=== PATIENT | male | born 1945 | race Caucasian/White ===

== ENCOUNTER 2017-04-03 06:02 | Inpatient (IN) | payer MEDICARE ==
[~2017-04-03] VITALS: Ht 177.8 cm; Wt 85.2 kg
[~2017-04-03 06:02] MED LIST: AMLO10TA2 PO; ASPI325T4 PO; FLUO40CA9 PO; FLUT16SP NAS; HYDR25TA6 PO; HYDROMORPHONE PO; LISI-170; LISI-170 PO; LISI30TA4 PO; LORA-439 PO; LOVA10TA PO; MELO-190 PO; NIAC500C8 PO; NIAC500T10 PO; OXYC-229; OXYC10TA6 PO; PANT40TA3 PO; PREG100C PO; PREG25CA PO; SIMV20TA3 PO; TIZA4CAP PO
[2017-04-03] MEDS ORDERED: BUPIVACAINE/PF-EPI 0.5% 1:200K ONE (06:49)
[2017-04-03] MEDS ORDERED: THROMBIN 5,000 UNIT VIAL TP ONE (06:50)
[2017-04-03] MEDS ORDERED: BACITRACIN 50,000 UNIT ONE (06:50)
[2017-04-03 07:19] VITALS: BP 137/76
[2017-04-03] MEDS ORDERED: LACTATED RINGERS 1,000 ML IV SCH (07:23)
[2017-04-03] MEDS ORDERED: FENTANYL PF 100 MCG/2ML ONE (08:36)
[2017-04-03] MEDS ORDERED: SUFentanil 50 MCG/ML, 1ML ONE (08:36)
[2017-04-03] MEDS ORDERED: ROCURONIUM 10 MG/ML ONE (08:48)
[2017-04-03] MEDS ORDERED: CEFAZOLIN 1,000 MG ONE (08:48)
[2017-04-03] MEDS ORDERED: ONDANSETRON 2MG/ML, 2ML ONE (08:48)
[2017-04-03] MEDS ORDERED: METOCLOPRAMIDE 5 MG/ML, 2ML ONE (08:48)
[2017-04-03] MEDS ORDERED: PROPOFOL 10 MG/ML, 20ML ONE (08:48)
[2017-04-03] MEDS ORDERED: GLYCOPYRROLATE 0.2MG/1ML ONE (08:48)
[2017-04-03] MEDS ORDERED: DEXAMETHASONE 4 MG/ML, 1ML ONE (08:48)
[2017-04-03] MEDS ORDERED: SUCCINYLCHOLINE 20 MG/ML, 10ML ONE (08:48)
[2017-04-03] MEDS ORDERED: OXYcodone 5 MG/5 ML ORAL.SOL UDC PO PRN (09:30)
[2017-04-03] MEDS ORDERED: hydrALAzine 20 MG/ML, 1ML IV PRN (09:30)
[2017-04-03] MEDS ORDERED: ONDANSETRON 2MG/ML, 2ML IVPush PRN ×2 (09:30→12:30)
[2017-04-03] MEDS ORDERED: LABETALOL 5MG/ML, 20ML IV PRN (09:30)
[2017-04-03] MEDS ORDERED: HYDROmorphone 1 MG/ML, 1ML IV PRN (09:30)
[2017-04-03] MEDS ORDERED: FENTANYL PF 100 MCG/2ML IV PRN (09:30)
[2017-04-03] MEDS ORDERED: HYDROmorphone PCA 30 MG/30 ML ONE (12:25)
[2017-04-03] MEDS ORDERED: BISACODYL 10 MG SUPP PR PRN (12:30)
[2017-04-03] MEDS ORDERED: HYDROmorphone PCA 30 MG/30 ML IV PRN (12:30)
[2017-04-03] MEDS ORDERED: PROMETHAZINE 25 MG/ML, 1ML IM PRN (12:30)
[2017-04-03] MEDS ORDERED: DIAZEPAM 5 MG TABLET PO PRN (12:30)
[2017-04-03] MEDS ORDERED: MAGNESIUM HYDROXIDE 8%, 30ML UDC PO PRN (12:30)
[2017-04-03] MEDS ORDERED: ACETAMINOPHEN 325 MG TABLET PO PRN (12:30)
[2017-04-03] MEDS ORDERED: LABETALOL 5MG/ML, 20ML IVPush PRN (12:30)
[2017-04-03] MEDS ORDERED: PHARMACY MAY ADJ FOR RENAL FX MC PRN (12:30)
[2017-04-03] MEDS ORDERED: MEPERIDINE/PF 100 MG/ML IM PRN (12:30)
[2017-04-03] MEDS: NS + 20MEQ KCL 1,000 ML IV SCH ×2 (15:20→22:30)
[2017-04-03] MEDS: CEFAZOLIN PMX 1GM/50ML 50 ML IVPB SCH (16:50)
[2017-04-03] MEDS: TIZANIDINE 4MG TABLET PO PRN (20:28)
[2017-04-03] MEDS: SODIUM CHLORIDE FLUSH 10ML SYR IVF SCH (20:28)
[2017-04-03] MEDS ORDERED: LOVASTATIN 40 MG TABLET PO SCH (21:00)
[2017-04-03] MEDS ORDERED: AMLODIPINE 5 MG TABLET PO SCH (21:00)
[2017-04-03 23:21] VITALS: BP 107/63
[2017-04-04] MEDS: CEFAZOLIN PMX 1GM/50ML 50 ML IVPB SCH (01:00)
[2017-04-04 03:35] VITALS: BP 136/72
[2017-04-04] MEDS ORDERED: HYDROmorphone 2MG TABLET ONE ×3 (06:22→14:44)
[2017-04-04] MEDS: HYDROmorphone 4MG TABLET PO PRN ×3 (06:23→14:46)
[2017-04-04] MEDS: TIZANIDINE 4MG TABLET PO PRN (06:23)
[2017-04-04 06:43] VITALS: BP 132/67
[2017-04-04] MEDS: NS + 20MEQ KCL 1,000 ML IV SCH (08:30)
[2017-04-04] MEDS ORDERED: SENNA/DOCUSATE TABLET PO SCH (09:00)
[2017-04-04] MEDS ORDERED: FLUOXETINE 20 MG CAPSULE PO SCH (09:00)
[2017-04-04] MEDS: SODIUM CHLORIDE FLUSH 10ML SYR IVF SCH (09:00)
[2017-04-04] MEDS ORDERED: HYDROCHLOROTHIAZIDE 25 MG TABLET PO SCH (09:00)
[2017-04-04] MEDS ORDERED: PREGABALIN 100 MG CAPSULE PO SCH (09:00)
[2017-04-04] MEDS ORDERED: LORATADINE 10 MG TABLET PO SCH (09:00)
[2017-04-04 12:59] VITALS: BP 132/69
[2017-04-04 14:54] VITALS: BP 153/80
[2017-04-04] MEDS ORDERED: HYDR4TAB48 PO (15:14)
[2017-04-04] MEDS ORDERED: TIZA4TAB9 PO (15:15)
== END 2017-04-04 15:30 | disposition home or self-care (01) | DRG 472 ==
LOC: ORIP 06:02 → 4NOR 13:18 → DCLOUNGE 04-04 14:55
PROVIDERS: ADMIT Neurological Surgery; ATTEND Neurological Surgery
PROC: 0RB30ZZ Excision of Cervical Vertebral Disc, Open Approach (ICD-10-PCS; 2017-04-03)
PROC: 4A11X4G Monitoring of Peripheral Nervous Electrical Activity, Intraoperative, External Approach (ICD-10-PCS; 2017-04-03)
PROC: 0RG20A0 Fusion of 2 or more Cervical Vertebral Joints with Interbody Fusion Device, Anterior Approach, Anterior Column, Open Approach (ICD-10-PCS; principal; 2017-04-03 08:30)
DX: M48.02 Spinal stenosis, cervical region (principal); J96.10 Chronic respiratory failure, unspecified whether with hypoxia or hypercapnia; M50.30 Other cervical disc degeneration, unspecified cervical region; M19.90 Unspecified osteoarthritis, unspecified site; G89.29 Other chronic pain; I10 Essential (primary) hypertension; Z96.651 Presence of right artificial knee joint; Z82.61 Family history of arthritis; Z85.46 Personal history of malignant neoplasm of prostate; Z86.73 Personal history of transient ischemic attack (TIA), and cerebral infarction without residual deficits; Z82.49 Family history of ischemic heart disease and other diseases of the circulatory system; Z80.9 Family history of malignant neoplasm, unspecified
CPT/HCPCS: 72040; 95938; 95941; C1713; J0690; J1100; J1170; J2405; J2704; J3010; J3480; J3490; J0330; J2765; J7120

== ENCOUNTER 2017-04-07 14:32 | Observation (INO) | payer MEDICARE ==
[~2017-04-07] VITALS: Ht 172.7 cm; Wt 82.2 kg
[~2017-04-07 14:32] MED LIST changes: +HYDR4TAB48 PO; +TIZA4TAB9 PO
[2017-04-07 15:46] LABS: ASPARTATE AMINO TRANSFERASE 56 U/L (15-37); BLOOD UREA NITROGEN 18 mg/dL (7-18)
[2017-04-07 15:47] LABS: ACETAMINOPHEN < 2 mcg/mL (10-30)
[2017-04-07 15:51] LABS: IS PT STATUS REG ER OR PRE ER? YES
[2017-04-07] MEDS ORDERED: TIZANIDINE 4MG TABLET PO PRN (19:00)
[2017-04-07 19:28] VITALS: BP 129/70
[2017-04-07 20:00] VITALS: BP 133/74
[2017-04-07] MEDS ORDERED: ACETAMINOPHEN 325 MG TABLET PO PRN (20:00)
[2017-04-07] MEDS ORDERED: TEMAZEPAM 15 MG CAPSULE PO PRN (20:00)
[2017-04-07] MEDS ORDERED: DOCUSATE 100 MG CAPSULE PO PRN (20:00)
[2017-04-07] MEDS ORDERED: ONDANSETRON 2MG/ML, 2ML IVPush PRN (20:00)
[2017-04-07] MEDS: OXYcodone/APAP 5/325MG TABLET PO PRN (20:28)
[2017-04-07] MEDS ORDERED: AMLODIPINE 5 MG TABLET PO SCH (21:00)
[2017-04-07] MEDS ORDERED: LOVASTATIN 40 MG TABLET PO SCH (21:00)
[2017-04-08] MEDS: OXYcodone/APAP 5/325MG TABLET PO PRN ×2 (00:20→04:45)
[2017-04-08 01:56] VITALS: BP 146/79
[2017-04-08 04:35] LABS: BLOOD UREA NITROGEN 13 mg/dL (7-18)
[2017-04-08 04:38] LABS: ASPARTATE AMINO TRANSFERASE 49 U/L (15-37)
[2017-04-08 06:45] VITALS: BP 147/79
[2017-04-08] MEDS ORDERED: POTASSIUM CHLORIDE 20 MEQ TAB.ER.PRT PO ONE (07:30)
[2017-04-08] MEDS ORDERED: PREGABALIN 100 MG CAPSULE PO SCH (09:00)
[2017-04-08] MEDS ORDERED: FLUOXETINE 20 MG CAPSULE PO SCH (09:00)
[2017-04-08] MEDS ORDERED: SENNA/DOCUSATE TABLET PO SCH (09:00)
== END 2017-04-08 10:45 | disposition home or self-care (01) ==
LOC: ED 15:31 → INTOOBSV 17:51 → EDIP 17:51 → 3NW 19:05
PROVIDERS: ADMIT Internal Medicine; ATTEND Internal Medicine
DX: R41.82 Altered mental status, unspecified (principal); E78.5 Hyperlipidemia, unspecified; E87.1 Hypo-osmolality and hyponatremia; F11.20 Opioid dependence, uncomplicated; J32.9 Chronic sinusitis, unspecified; D64.9 Anemia, unspecified; I11.9 Hypertensive heart disease without heart failure; F32.9 Major depressive disorder, single episode, unspecified; Z79.891 Long term (current) use of opiate analgesic; Z98.1 Arthrodesis status
CPT/HCPCS: 36415; 70450; 71010; 80053; 80307; 80329; 81003; 83605; 84484; 85025; 87040; 93005; 99285; G0378; G0480

== ENCOUNTER 2017-04-09 08:51 | Emergency (ER) | payer MEDICARE ==
[~2017-04-09] VITALS: Ht 177.8 cm; Wt 81.3 kg
[2017-04-09 09:55] VITALS: BP 120/68
[2017-04-09 10:33] LABS: BLOOD UREA NITROGEN 12 mg/dL (7-18)
[2017-04-09 10:40] LABS: IS PT STATUS REG ER OR PRE ER? YES
== END 2017-04-09 11:35 | disposition home or self-care (01) ==
LOC: ED 09:38
DX: J45.909 Unspecified asthma, uncomplicated (principal); J20.9 Acute bronchitis, unspecified; R09.02 Hypoxemia; I10 Essential (primary) hypertension; Z86.73 Personal history of transient ischemic attack (TIA), and cerebral infarction without residual deficits
CPT/HCPCS: 36415; 71010; 80048; 82040; 84484; 85025; 93005; 99285

== ENCOUNTER → 2018-03-12 | Outpatient (CLI) | payer MEDICARE ==
[~2018-03-12] MED LIST changes: +ASPI325T17 PO; -ASPI325T4 PO; -MELO-190 PO; +MELO7.5T31 PO; -OXYC-229; +OXYC-307
== END | disposition home or self-care (01) ==
LOC: EDSTATUS 14:30 → CFH 14:34
PROVIDERS: ATTEND Orthopaedic Surgery
DX: M21.862 Other specified acquired deformities of left lower leg (principal); M19.072 Primary osteoarthritis, left ankle and foot

== ENCOUNTER → 2019-01-16 | Outpatient (CLI) | payer MEDICARE ==
[~2019-01-16] MED LIST changes: -AMLO10TA2 PO; +AMLO10TA8 PO
== END | disposition home or self-care (01) ==
LOC: CFH 08:42
PROVIDERS: ATTEND Orthopaedic Surgery
DX: M19.072 Primary osteoarthritis, left ankle and foot (principal)